=== PATIENT | female | born 1945 | race Caucasian/White ===

== ENCOUNTER → 2017-08-23 | Outpatient (CLI) | payer BC, MEDICARE ==
[~2017-08-23] MED LIST: ASPI-496 PO; BIOT25005 PO; CELE200C PO; CHOL10003 PO; CYCL1DRO EACHEYE; DIAZ5TAB PO; DOCU-131 PO; GLUC-162 PO; LOSA100T6 PO; MILK THISTLE PO; MULT-717 PO; OMEG1CAP34 PO; ONDA4TAB10 PO; OXYC5CAP2 PO; PRAV40TA2 PO; SERT100T5 PO; TRAM50TA2 PO; VITAMIN C PO
[2017-08-23 12:09] LABS: BASOPHILS # (AUTO) 0.03 x10^3/uL (0-0.1); BASOPHILS % (AUTO) 1 % (0-1); EOSINOPHILS # (AUTO) 0.11 x10^3/uL (0-0.4); EOSINOPHILS % (AUTO) 2 % (1-7); LYMPHOCYTES # (AUTO) 2.76 x10^3/uL (1-3.4); LYMPHOCYTES % (AUTO) 45 % (22-44); MD NO; MEAN CORPUSCULAR HEMOGLOBIN 30.6 pg (27.0-34.8); MEAN CORPUSCULAR HGB CONC 34.1 g/dL (32.4-35.8); MEAN CORPUSCULAR VOLUME 89.8 fL (80-100); MEAN PLATELET VOLUME 7.5 fL (7.4-10.4); MONOCYTES # (AUTO) 0.59 x10^3/uL (0.2-0.8); MONOCYTES % (AUTO) 10 % (2-9); NEUTROPHILS % (AUTO) 44 % (42-75); PLATELET COUNT 318 x10^3/uL (130-400); RED BLOOD COUNT 4.83 x10^6/uL (3.82-5.3); RED CELL DISTRIBUTION WIDTH 14.8 % (9.6-15.2)
[2017-08-23 12:14] LABS: MICROSCOPIC NOT IND
[2017-08-23 12:17] LABS: CULTURE INDICATED? NO
[2017-08-23 12:20] LABS: INTERNATIONAL NORMALIZED RATIO 1.07 (0.93-1.1); PROTHROMBIN TIME 11.1 Seconds (9.6-11.5)
[2017-08-23 12:30] LABS: ALANINE AMINOTRANSFERASE 30 U/L (12-78); ALBUMIN 4.4 g/dL (3.4-5.0); ANION GAP 9 mmol/L (5-15); CALCIUM 8.8 mg/dL (8.5-10.1); CHLORIDE 105 mmol/L (98-107); CREATININE 0.79 mg/dL (0.55-1.02)
[2017-08-23 12:33] LABS: ALKALINE PHOSPHATASE 79 U/L (45-117); BILIRUBIN,TOTAL 0.3 mg/dL (0.2-1.0); TOTAL PROTEIN 7.8 g/dL (6.4-8.2)
== END ==
LOC: STAR 10:40
PROVIDERS: ATTEND Orthopaedic Surgery
DX: Z01.818 Encounter for other preprocedural examination (principal); S72.114A Nondisplaced fracture of greater trochanter of right femur, initial encounter for closed fracture; X58.XXXA Exposure to other specified factors, initial encounter; Y93.89 Activity, other specified; Y92.89 Other specified places as the place of occurrence of the external cause; Y99.8 Other external cause status
CPT/HCPCS: 36415; 80053; 81003; 83036; 85025; 85610; 85730; 87081; 87147; 87806; 93005; G0475

== ENCOUNTER 2017-08-28 07:35 | Observation (INO) | payer BC, MEDICARE ==
[~2017-08-28] VITALS: Ht 170.2 cm; Wt 65.0 kg
[~2017-08-28 07:35] MED LIST changes: -CELE200C PO; -DIAZ5TAB PO; -DOCU-131 PO; -ONDA4TAB10 PO; -OXYC5CAP2 PO; -TRAM50TA2 PO
[2017-08-28] MEDS ORDERED: VANCOMYCIN PER PHARMACY MC ONE (08:03)
[2017-08-28] MEDS ORDERED: LACTATED RINGERS 1,000 ML IV SCH (08:28)
[2017-08-28] MEDS ORDERED: FAMOTIDINE 20 MG TABLET PO ONE (08:30)
[2017-08-28] MEDS ORDERED: ONDANSETRON ODT 8 MG PO ONE (08:30)
[2017-08-28] MEDS ORDERED: OXYcodone IR 5MG TABLET PO ONE (08:30)
[2017-08-28] MEDS ORDERED: GABAPENTIN 300 MG CAPSULE PO SCH (08:30)
[2017-08-28] MEDS ORDERED: ACETAMINOPHEN 500 MG TABLET PO ONE (08:30)
[2017-08-28] MEDS ORDERED: FAMOTIDINE 20 MG TABLET ONE (08:35)
[2017-08-28] MEDS ORDERED: OXYcodone IR 5MG TABLET ONE (08:36)
[2017-08-28] MEDS ORDERED: ONDANSETRON ODT 8 MG ONE (08:37)
[2017-08-28] MEDS ORDERED: GABAPENTIN 300 MG CAPSULE ONE (08:38)
[2017-08-28] MEDS ORDERED: ACETAMINOPHEN 500 MG TABLET ONE (08:38)
[2017-08-28] MEDS ORDERED: TRANEXAMIC ACID 100 MG/ML, 10ML ONE ×4 (08:39→08:40)
[2017-08-28] MEDS ORDERED: KETOROLAC 60 MG/2 ML ONE (08:39)
[2017-08-28] MEDS ORDERED: SODIUM CHLORIDE 0.9% 100 ML ONE (08:40)
[2017-08-28] MEDS ORDERED: ROPIvacaine/PF 0.2%, 20 ML ONE (08:40)
[2017-08-28] MEDS ORDERED: EPINEPHRINE 1 MG/ML, 1ML ONE (08:40)
[2017-08-28] MEDS ORDERED: FENTANYL PF 100 MCG/2ML ONE ×3 (08:50→11:58)
[2017-08-28] MEDS ORDERED: MIDAZOLAM 1 MG/ML, 2ML ONE ×2 (08:50→12:44)
[2017-08-28] MEDS ORDERED: VANCOMYCIN 1,100 MG in SODIUM CHLORIDE 0.9% 250 ML IV ONE (10:00)
[2017-08-28] MEDS ORDERED: CEFAZOLIN 1,000 MG ONE (10:56)
[2017-08-28] MEDS ORDERED: DEXAMETHASONE 4 MG/ML, 1ML ONE (10:56)
[2017-08-28] MEDS ORDERED: PROPOFOL 10 MG/ML, 20ML ONE (10:56)
[2017-08-28] MEDS ORDERED: ONDANSETRON 2MG/ML, 2ML IVPush PRN (11:00)
[2017-08-28] MEDS ORDERED: MEPERIDINE/PF 25MG/0.5ML IVPush PRN (11:00)
[2017-08-28] MEDS ORDERED: HYDROcodone/APAP 7.5-325MG/15ML UDC PO PRN (11:00)
[2017-08-28] MEDS ORDERED: ALBUTEROL SULFATE 2.5 MG/3 ML NPPB PRN (11:00)
[2017-08-28] MEDS ORDERED: DIAZEPAM 5 MG/ML, 2ML IVPush PRN (11:00)
[2017-08-28] MEDS ORDERED: MIDAZOLAM 1 MG/ML, 2ML IV PRN (11:00)
[2017-08-28] MEDS ORDERED: PROMETHAZINE 12.5 MG SUPP PR PRN (11:00)
[2017-08-28] MEDS ORDERED: EPHEDRINE 50 MG/ML, 1ML IVPush PRN (11:00)
[2017-08-28] MEDS ORDERED: LABETALOL 5MG/ML, 20ML IV PRN (11:00)
[2017-08-28] MEDS ORDERED: hydrALAzine 20 MG/ML, 1ML IV PRN (11:00)
[2017-08-28] MEDS ORDERED: PROMETHAZINE 25 MG/ML, 1ML IV PRN (11:00)
[2017-08-28] MEDS ORDERED: METOPROLOL 1 MG/ML, 5ML IV PRN (11:00)
[2017-08-28] MEDS ORDERED: OXYcodone 5 MG/5 ML ORAL.SOL UDC PO PRN (11:00)
[2017-08-28] MEDS ORDERED: OXYcodone 5 MG/5 ML ORAL.SOL UDC ONE (11:42)
[2017-08-28] MEDS: FENTANYL PF 100 MCG/2ML IV PRN ×4 (11:44→12:10)
[2017-08-28] MEDS ORDERED: ONDANSETRON 4 MG TABLET PO PRN (12:00)
[2017-08-28] MEDS ORDERED: HYDROcodone/APAP 5/325 TABLET PO PRN (12:00)
[2017-08-28] MEDS ORDERED: DIPHENHYDRAMINE 25 MG CAPSULE PO PRN (12:00)
[2017-08-28] MEDS ORDERED: DIAZEPAM 5 MG TABLET PO PRN (12:00)
[2017-08-28] MEDS ORDERED: MAGNESIUM HYDROXIDE 8%, 30ML UDC PO PRN (12:00)
[2017-08-28] MEDS ORDERED: morphine SULFATE 10 MG/ML, 1ML IV PRN (12:00)
[2017-08-28] MEDS ORDERED: ONDANSETRON 2MG/ML, 2ML IV PRN (12:00)
[2017-08-28] MEDS ORDERED: PROMETHAZINE 25 MG/ML, 1ML IM PRN (12:00)
[2017-08-28] MEDS ORDERED: SCOPOLAMINE PATCH, 1.5MG PATCH.TD72 TD PRN (12:00)
[2017-08-28] MEDS ORDERED: TRANEXAMIC ACID 1,000 MG in SODIUM CHLORIDE 0.9% 100 ML IVPB ONE (12:00)
[2017-08-28] MEDS ORDERED: morphine SULFATE 10 MG/ML, 1ML ONE (12:19)
[2017-08-28] MEDS: morphine SULFATE 10 MG/ML, 1ML IV PRN ×2 (12:26→12:32)
[2017-08-28] MEDS ORDERED: MEPERIDINE/PF 25MG/0.5ML ONE (12:44)
[2017-08-28] MEDS ORDERED: HYDROmorphone 1 MG/ML, 1ML ONE (13:36)
[2017-08-28] MEDS: HYDROmorphone 1 MG/ML, 1ML IV PRN ×2 (13:40→13:51)
[2017-08-28 14:07] VITALS: BP 131/75
[2017-08-28] MEDS ORDERED: NALOXONE 0.4 MG/ML, 1ML IVPush ONE (16:30)
[2017-08-28] MEDS: CEFAZOLIN PMX 1GM/50ML 50 ML IVPB SCH (17:09)
[2017-08-28] MEDS: OXYcodone IR 5MG TABLET PO PRN (17:47)
[2017-08-28 18:44] VITALS: BP 115/67
[2017-08-28] MEDS: DOCUSATE 100 MG CAPSULE PO SCH (20:04)
[2017-08-28 20:06] VITALS: BP 111/70
[2017-08-28] MEDS ORDERED: PRAVASTATIN 40 MG TABLET PO SCH (21:00)
[2017-08-28] MEDS ORDERED: LOSARTAN 50MG TABLET PO SCH (21:00)
[2017-08-28 23:12] VITALS: BP 106/56
[2017-08-29] MEDS: CEFAZOLIN PMX 1GM/50ML 50 ML IVPB SCH (01:10)
[2017-08-29 03:09] VITALS: BP 112/64
[2017-08-29] MEDS ORDERED: ASPIRIN 325 MG TABLET EC PO SCH ×2 (06:00→18:00)
[2017-08-29 07:45] VITALS: BP 118/65
[2017-08-29] MEDS: OXYcodone IR 5MG TABLET PO PRN (08:54)
[2017-08-29] MEDS: DOCUSATE 100 MG CAPSULE PO SCH (08:54)
[2017-08-29] MEDS ORDERED: OMEGA-3/FISH OIL CAPSULE PO SCH (09:00)
[2017-08-29] MEDS ORDERED: MULTIVITAMINS/MINERALS TABLET PO SCH (09:00)
[2017-08-29] MEDS ORDERED: CHOLECALCIFEROL 1,000 UNIT TABLET PO SCH (09:00)
[2017-08-29] MEDS ORDERED: SERTRALINE 100MG TABLET PO SCH (09:00)
[2017-08-29] MEDS ORDERED: CYCLOSPORINE EACHEYE SCH (09:00)
[2017-08-29] MEDS ORDERED: ASCORBIC ACID 500 MG TABLET PO SCH (09:00)
[2017-08-29] MEDS ORDERED: DOCU-131 PO (09:26)
[2017-08-29] MEDS ORDERED: CELE200C PO (09:26)
[2017-08-29] MEDS ORDERED: DIAZ5TAB PO (09:26)
[2017-08-29] MEDS ORDERED: OXYC5CAP2 PO (09:26)
[2017-08-29] MEDS ORDERED: ONDA4TAB10 PO (09:26)
[2017-08-29] MEDS ORDERED: TRAM50TA2 PO (09:27)
[2017-08-29 13:27] VITALS: BP 111/64
== END 2017-08-29 17:05 | disposition home or self-care (01) ==
LOC: OUT 07:35 → ORIP 11:37 → 4NOR 14:05 → DCLOUNGE 08-29 16:48
PROVIDERS: ADMIT Orthopaedic Surgery; ATTEND Orthopaedic Surgery
DX: S72.113A Displaced fracture of greater trochanter of unspecified femur, initial encounter for closed fracture (principal); W18.30XA Fall on same level, unspecified, initial encounter; Y93.01 Activity, walking, marching and hiking; Z96.641 Presence of right artificial hip joint
CPT/HCPCS: 27269; 36415; 73501; 85014; 85018; 96365; 96375; 97161; C1776; G0378; G8978; G8979; G8980; J0171; J0690; J1100; J1170; J1885; J2175; J2250; J2270; J2310; J2704; J2795; J3010; J3370; J7050; J7120; Q0162